=== PATIENT | female | born 1995 | race Caucasian/White ===

== ENCOUNTER 2019-04-09 13:27 | Emergency (ER) | payer OTHER, SELFPAY ==
--- NOTE | 2019-04-09 13:27 | ED.GENADULT ---
HPI - General Adult General Chief complaint: Upper Respiratory Infection Stated complaint: cough/sore throat/ear pain/sob Time Seen by Provider: 04/09/19 13:43 Source: patient Mode of arrival: ambulatory Limitations: no limitations History of Present Illness HPI narrative: 23-year-old female patient presents to the [facility] with complaints of cold symptoms. Patient states she has had the symptoms for the past 4 days that include headache, nasal congestion, runny nose, cough and a sore throat. Patient states that her mother is currently in the hospital with influenza and pneumonia. Patient states that she did get a flu shot this year. Patient states that she does smoke weed occasionally but denies any cigarettes or vaping. Patient states she has been taking [id number] Aleve as well as generic DayQuil for her symptoms. Related Data Allergies Allergy/AdvReac Type Severity Reaction Status Date / Time coconut Allergy Mild rash Verified 03/22/19 13:33 latex Allergy Mild Rash Verified 03/22/19 13:33 quetiapine Allergy Unknown Muscle Verified 03/22/19 13:33 Spasms ziprasidone Allergy Unknown Anaphylactic Verified 03/22/19 13:33 Shock jalpanenos Allergy Mild Rash Uncoded 12/21/18 14:29 jergens lotion Allergy Mild rash Uncoded 12/21/18 14:29 SEASONAL ALLERGENS Allergy Mild Sneezing Uncoded 03/22/19 13:33 CATS Allergy Unknown Sneezing Uncoded 03/22/19 13:33 white chocolate AdvReac Mild Rash Uncoded 12/21/18 14:29 Review of Systems Review of Systems: Narrative: CONSTITUTIONAL: Positive fever, chills, body aches and sweats. EYES: Denies visual changes, redness, or discharge. ENT: Positive rhinorrhea, congestion, sore throat, denies otalgia. CARDIOVASCULAR: Denies chest pain, palpitations, or edema. RESPIRATORY: Positive cough, denies dyspnea. GASTROINTESTINAL: Denies abdominal pain, nausea, vomiting, or diarrhea. GENITOURINARY: Denies dysuria or hematuria. SKIN: Denies rash or itching. MUSCULOSKELETAL: Denies back pain, joint pain, or myalgia. NEUROLOGIC: Positive headache, denies numbness, or weakness. PSYCHIATRIC: Denies anxiety or depression. [facility] Past Medical History Medical History Arthritis Cardiac arrhythmia Endometriosis Fibromyalgia Family History Family History Grandparent Family history of elevated blood lipids Cerebrovascular accident Family history of coronary artery disease, Onset Age: 200 Mother Family history of lupus erythematosus Other Family history of blood dyscrasia Social History Social History Smoking status: Never smoker Second hand tobacco smoke exposure: No Alcohol intake: current Gender identity (if verbalized by the patient): Female Comments At the time of my signature I agree with nursing past medical history, surgical, social, and family history. There is no relevant family history pertinent to the presenting complaint. Exam Narrative: Exam Narrative: GENERAL: ill-appearing, well-nourished, and in no acute distress. HEAD: Normocephalic, atraumatic. EYES: PERRLA and EOMI. ENT: Nares with erythema and edema noted bilaterally, no rhinorrhea or epistaxis. Mucous membranes moist. Posterior pharynx with some erythema but no tonsil enlargement no exudates or lesions present. Bilateral TMs are clear with no erythema or foreign bodies in the canal. NECK: Supple. No lymphadenopathy CHEST: Clear to auscultation. No respiratory distress. Patient able talk in clear complete sentences. No tripoding noted. HEART: Regular rate and rhythm. No murmur heard. Normal peripheral pulses. ABDOMEN: Soft, nontender, nondistended, normal active bowel sounds. EXTREMITIES: Normal range of motion. No edema. SKIN: Warm, dry, no rash. NEURO: No focal deficits. Alert and oriented x3. Course Reevaluation(s) Reevalua
[2019-04-09 13:35] VITALS: BP 126/83; PULSE 88; RESP 20; TEMP 36.4; O2SAT 99
== END 2019-04-09 14:26 | disposition home or self-care (01) ==
PROVIDERS: Emergency Provider Nurse Practitioner Family
DX: J10.1 Influenza due to other identified influenza virus with other respiratory manifestations (principal); M19.90 Unspecified osteoarthritis, unspecified site; N80.9 Endometriosis, unspecified; M79.7 Fibromyalgia
CPT/HCPCS: 87081; 87804; 87880; 99213; G0463

== ENCOUNTER 2019-04-11 14:50 | Emergency (ER) | payer OTHER, SELFPAY ==
--- NOTE | ~2019-04-11 | XR_ITS ---
EXAMINATION: XR chest 2V 04/11/2019 15:23 INDICATION: Cough, congestion and fever PROCEDURE: 2 view chest COMPARISON: 11/23/2007 FINDINGS: The lungs are clear. The cardiomediastinal silhouette is within normal limits. There are no pleural effusions. There is no pneumothorax suspected. IMPRESSION: 1: NO ACUTE CARDIOPULMONARY DISEASE. Reviewed, dictated and finalized at location A. ENGINE MECHANIC
[2019-04-11 14:55] VITALS: BP 136/86; PULSE 92; RESP 20; TEMP 36.3; O2SAT 100
--- NOTE | 2019-04-11 15:51 | ECG_ITS ---
Measurements Intervals [place] Rate: 75 P: 29 [place]: 161 QRS: 23 QRSD: 94 T: 37 QT: 366 QTc: 410 Interpretive Statements SINUS RHYTHM NORMAL ECG Electronically Signed On 04-11-2019 16:20:36 [employer] by Omar Castanon D.O.
[2019-04-11 16:05] VITALS: PULSE 89; RESP 16
[2019-04-11] MEDS: ALBUTEROL SULFATE NEB 2.5 MG/0.5 ML INH 5 MG INHALATION (16:05)
--- NOTE | 2019-04-11 16:05 | ED.GENADULT ---
HPI - General Adult General Chief complaint: Unspecified Stated complaint: FLU LIKE S/S Time Seen by Provider: 04/11/19 15:14 Source: patient Mode of arrival: EMS Limitations: no limitations History of Present Illness HPI narrative: This is a 23 year old female that presents to the ER via EMS for cold symptoms x 3 days. Reports fever, cough, congestion, headache and myalgias. Reports she was seen at the urgent care for this and diagnosed with Influenza. Reports she has been feeling short of breath since onset of symptoms. Also reports some substernal chest tightness that has been present for the last couple days. Denies abdominal pain, nausea or vomiting. Related Data Allergies Allergy/AdvReac Type Severity Reaction Status Date / Time coconut Allergy Mild rash Verified 04/11/19 15:12 latex Allergy Mild Rash Verified 04/11/19 15:12 quetiapine Allergy Unknown Muscle Verified 04/11/19 15:12 Spasms ziprasidone Allergy Unknown Anaphylactic Verified 04/11/19 15:12 Shock jalpanenos Allergy Mild Rash Uncoded 12/21/18 14:29 jergens lotion Allergy Mild rash Uncoded 12/21/18 14:29 SEASONAL ALLERGENS Allergy Mild Sneezing Uncoded 03/22/19 13:33 CATS Allergy Unknown Sneezing Uncoded 03/22/19 13:33 white chocolate AdvReac Mild Rash Uncoded 12/21/18 14:29 Review of Systems Review of Systems: Narrative: CONSTITUTIONAL: Reports fever, chills ENT: Reports rhinorrhea, congestion, sore throat. Denies otalgia. CARDIOVASCULAR: Reports chest pain RESPIRATORY: Reports cough and dyspnea. GASTROINTESTINAL: Denies abdominal pain, nausea, vomiting GENITOURINARY: Denies dysuria MUSCULOSKELETAL: Reports myalgia. All systems reviewed & are unremarkable except as noted in HPI and below PMFSH Past Medical History Medical History (Updated 04/11/19 @ 17:16 by Karly Maki PA-C) Arthritis Cardiac arrhythmia Endometriosis Fibromyalgia Surgical History Surgical History (Updated 04/11/19 @ 16:09 by Karly Maki PA-C) History of dilatation and curettage Social History Social History Smoking status: Never smoker Second hand tobacco smoke exposure: No Alcohol intake: current Gender identity (if verbalized by the patient): Female Exam Narrative: Exam Narrative: GENERAL: Well-appearing, obese, and in no acute distress. HEAD: Normocephalic, atraumatic. EYES: EOMI. ENT: Turbinates swollen and pale. Mucous membranes moist. Oropharynx without tonsillar hypertrophy exudate or other lesions. Bilateral TMs pearly cheng non-bulging NECK: Supple. No adenopathy or masses. CHEST: Clear to auscultation. No respiratory distress. No wheezes rales or rhonchi HEART: Regular rate and rhythm. No murmur heard. Normal peripheral pulses. EXTREMITIES: Normal range of motion. No edema. SKIN: Warm, dry, no rash. NEURO: No focal deficits. Alert and oriented x3. PSYCH: Normal mood and affect Course Vital Signs Vital signs: Vital Signs Temperature 97.3 F L 04/11/19 14:55 Pulse Rate 92 04/11/19 14:55 Respiratory Rate 20 04/11/19 14:55 Blood Pressure 136/86 04/11/19 14:55 Pulse Oximetry 100 04/11/19 14:55 Temperature 97.3 F L 04/11/19 14:55 Pulse Rate 90 04/11/19 16:19 Respiratory Rate 16 04/11/19 16:19 Blood Pressure 136/86 04/11/19 14:55 Pulse Oximetry 100 04/11/19 14:55 Medical Decision Making [facility] Narrative Medical decision making narrative: Patient presents the emergency department for cold symptoms x3 days. Also reports some intermittent chest pain and shortness of breath since onset of cold symptoms. Patient was given a nebulizer treatment with relief. CBC and metabolic panel are without acute changes. Troponin is not elevated. EKG is without acute changes. Chest x-ray is without acute changes. Patient is influenza B positive. She is outside treatment window, so was instructed on symptomatic care. Reports she does have an albuterol inhaler at
[2019-04-11] MEDS: IPRATROPIUM BR 0.02% INH SOLN 0.5 MG/2.5 ML VIAL INHALATION (16:06)
[2019-04-11 16:19] VITALS: PULSE 90; RESP 16
[2019-04-11 16:29] LABS: Basophils Percent Auto 0.3 % (0.2-1.2); Eosinophils Absolute Auto 0.1 K/mm3 (0-0.3); Eosinophils Percent Auto 0.9 % (0-4.4); Hematocrit 41.2 % (37.0-47.0); Immature Granulocyte Absolute 0.01 K/mm3 (0.00-0.031); Immature Granulocyte Percent A 0.2 % (0-0.5); Lymphocytes Absolute Auto 1.88 K/mm3 (0.9-3.2); Lymphocytes Percent Auto 28.9 % (18.3-44.2); Mean Corpuscular Hemoglobin 27.8 pg (26-34); Mean Corpuscular Volume 81.7 fl (80-100); Mean Platelet Volume 9.2 fl (7.4-10.4); Monocytes Absolute Auto 0.6 K/mm3 (0.1-0.6); Monocytes Percent Auto 8.9 % (2.6-8.5); Neutrophils Percent Auto 60.8 % (45.5-73.1); Platelet Count Result 268 k/mm3 (150-375); Red Blood Count 5.04 M/mm3 (4.2-5.4); Red Cell Distribution Width 12.9 % (11.5-14.5); White Blood Count 6.5 K/mm3 (4.5-10.0)
[2019-04-11 16:40] LABS: Blood Urea Nitrogen 8 mg/dL (7-17); Calcium 8.8 mg/dL (8.4-10.2); Carbon Dioxide 24 mmol/L (22-30); Chloride 105 mmol/L (98-107); Estimated CRCL calculation 176 ml/min; Estimated Glomerular Filt Rate > 60; Glucose 100 mg/dL (65-105); Potassium 3.8 mmol/L (3.4-5.0); Sodium 141 mmol/L (137-145)
[2019-04-11 16:52] LABS: Troponin I < 0.012 ng/mL (0.000-0.034)
== END 2019-04-11 17:41 | disposition home or self-care (01) ==
PROVIDERS: Physician Assistant; Emergency Provider Emergency Medicine
DX: J10.1 Influenza due to other identified influenza virus with other respiratory manifestations (principal); M19.90 Unspecified osteoarthritis, unspecified site; M79.7 Fibromyalgia; N80.9 Endometriosis, unspecified
CPT/HCPCS: 36415; 71046; 80048; 84484; 85025; 87804; 93005; 94640; 99284

== ENCOUNTER 2019-12-09 00:57 | Outpatient (CLI) | payer OTHER, SELFPAY ==
[2019-12-09 18:01] LABS: SARS-CoV-2 RNA PCR Negative
== END 2019-12-09 00:58 | disposition home or self-care (01) ==
LOC: ANHCOVIDDT 00:58
PROVIDERS: PCP Family Medicine; Visit Provider Obstetrics & Gynecology
DX: Z01.812 Encounter for preprocedural laboratory examination (principal); Z20.828 Contact with and (suspected) exposure to other viral communicable diseases
CPT/HCPCS: 87635; C9803; U0003

== ENCOUNTER 2019-12-11 00:45 | Day surgery (SDC) | payer OTHER, SELFPAY ==
[2019-11-26 12:09] VITALS: BMI 48.2
[2019-12-11] VITALS (8 sets, daily range): BP systolic 130–161; BP diastolic 74–90; PULSE 78–98; RESP 16–28; TEMP 35.9–36.2; O2SAT 91–100
[2019-12-11] MEDS: LACTATED RINGERS 1,000 ML 30 ML IV CONT ×2 (09:04→13:14)
--- NOTE | 2019-12-11 09:04 | WPDANESEPPF ---
Anes - Initial Pre Proc Eval Procedure: Operation Date: 12/11/19 10:00 Proposed Procedures p Diagnostic Laparoscopy - Frantz Eduardo MD Date/Time: 12/11/19 09:04 Surgeon: Frantz Eduardo MD Pre Op Diagnosis: pelvic and perineal pain Patient Data Age: 24 Gender: F Height: 5 ft 5 in Weight: 131.54 kg Allergies Allergy/AdvReac Type Severity Reaction Status Date / Time coconut Allergy Mild rash, lips Verified 11/26/19 12:11 swelling latex Allergy Mild Rash Verified 11/26/19 12:11 quetiapine Allergy Unknown Muscle Verified 11/26/19 12:11 Spasms ziprasidone Allergy Unknown Anaphylactic Verified 11/26/19 12:11 Shock almond Allergy rash, lips Verified 11/26/19 12:11 swelling acetaminophen [From Tylenol] AdvReac AVOIDS D/T Verified 11/26/19 12:22 FATTY LIVER morphine AdvReac paranoia, Verified 11/26/19 12:11 anxiety jalpanenos Allergy Mild Rash Uncoded 11/26/19 12:11 jergens lotion Allergy Mild rash Uncoded 11/26/19 12:11 SEASONAL ALLERGENS Allergy Mild Sneezing Uncoded 11/26/19 12:11 CATS Allergy Unknown Sneezing Uncoded 11/26/19 12:11 white chocolate AdvReac Mild Rash Uncoded 11/26/19 12:11 Home Medications Medication Instructions Recorded Confirmed Type cetirizine [Zyrtec] 10 mg PO DAILY #30 tablet 04/09/19 11/26/19 Rx diphenhydramine HCl [Benadryl] 25 mg PO BID PRN 11/26/19 11/26/19 History fluoxetine 20 mg PO DAILY 11/26/19 11/26/19 History prazosin 2 mg PO HS 11/26/19 11/26/19 History topiramate 100 mg PO HS 11/26/19 11/26/19 History Patient hx anesthesia problems: none Family hx anesthesia problems: none PMFSH Past Medical History Medical History (Updated 12/11/19 @ 08:56 by Hesham Lai MD) Arthritis Bipolar 1 disorder Cardiac arrhythmia Endometriosis Fatty liver Fibromyalgia Surgical History Surgical History (Updated 04/11/19 @ 16:09 by Karly Maki PA-C) History of dilatation and curettage Social History Social History Smoking status: Never smoker Second hand tobacco smoke exposure: No Alcohol intake: former Alcohol use details: STATES WAS BEGINNING TO HAVE PROBLEMS WITH ALCOHOL- NOW SOBER 6 MONTHS Substance use: current Substance use type: marijuana Last use: 2 WEEKS AGO Gender identity (if verbalized by the patient): Female Spiritual care concerns: No Anes - Eval Final PreProcedure Day of Procedure 12/11/19 09:04 Patient weight: morbidly obese Heart: regular rate and rhythm Lungs: clear to auscultation Airway: Mallampati scale class III Neurological: alert and oriented Last oral intake: >/= 8 hours ASA classification: III Emergent: no Anesthetic plan: proceed Anesthesia type and monitoring: general ETT and standard monitoring Informed Consent: The patient's anesthetic plan and its attendant risks and benefits were discussed with the patient/family/POA. Questions were solicited and answers provided to the satisfaction of the patient/family/POA.
[2019-12-11] MEDS: KETOROLAC 15 MG/ML VIAL (*BKC) IV PUSH (09:05)
[2019-12-11] MEDS: MIDAZOLAM HCL (*CRX) 2 MG/2 ML VIAL IV PUSH (09:05)
[2019-12-11] MEDS: ACETAMINOPHEN 500 MG TABLET 1000 MG PO (09:05)
--- NOTE | 2019-12-11 10:07 | WPDHPUPDATE1 ---
History and Physical Update Update Date/Time: 12/11/19 10:07 History and Physical has been reviewed, including an updated exam of the patient. There are NO changes in the patient's condition. Risks, benefits, and alternatives have been discussed and questions answered. Patient agrees to proceed with procedure.
[2019-12-11] MEDS: fentaNYL CITRATE INJ (*CRX) 100 MCG/2 ML VIAL 25 MCG IV PUSH ×2 (13:24→13:45)
--- NOTE | 2019-12-11 13:27 | P.OP_ITS ---
Procedure Note - Detailed Date of procedure: 12/11/19 Pre-op diagnosis: pelvic and perineal pain Post-op diagnosis: same ( Endometriosis, pelvic adhesions,) Procedure performed: radical resection of endometriosis and peritoneum from the pelvis, adhesiolysis, fulguration of endometriosis Description of procedure: The patient was taken the operating room. She was prepped and draped in the dorsal lithotomy position after induction of general anesthesia. A 5 mm left upper quadrant incision was made in the abdominal skin with a scalpel. A 5 mm trocar was inserted the intra-abdominal cavity under direct visualization of the scope. A 5 mm left lower quadrant incision was made with the scalp on the abdominal skin and a 5 mm trocar was inserted the intra- abdominal cavity under direct visualization of the scope. A 5 mm infraumbilical incision was made with scalpel and a 5 mm trocar was inserted into the intra- abdominal cavity under direct visualization of the scope.The tip of the JOHNATHAN manipulator was inserted into the intrauterine cavity. This was done using a speculum and tenaculum. The balloon was inflated in the speculum and tenaculum were removed. radical resection of peritoneal peritoneum was performed. Was done using sharp and blunt dissection and cautery. The ureters were identified and dissected out from the pelvic brim to the uterine arteries. The surrounding peritoneum from the lateral rectum to the ovarian fossa Laterally, from the pelvic brim to the level of the cervix anteriorly. adhesiolysis was performed deep in the posterior cul-de-sac from the anterior rectum to the anterior pelvis. This required 2 hours. Interceed was placed over posterior cul-de-sac. Areas endometriosis were fulgurated the dome of the bladder Also. The pelvis was irrigated with copious amounts of normal saline. The pneumoperitoneum was reduced. The trocars were removed. The patient was taken recovery room stable condition. Sponge lap and needle counts were correct x2. Anesthesia: GETA Surgeon: Frantz Eduardo MD Estimated blood loss (mL): 100 Drains: No Packing: No Complications: No immediate complications Condition: stable Disposition: PACU Findings: endometrial implants throughout the posterior cul-de-sac of the pelvis. endometriosis implants in the dome of the bladder, adhesions between the anterior rectum the anterior pelvis.
[2019-12-11] MEDS: oxyCODONE HCL (*CRX) 5 MG TAB IR PO (14:41)
== END 2019-12-11 15:25 | disposition home or self-care (01) ==
PROVIDERS: PCP Family Medicine; Visit Provider Obstetrics & Gynecology
PROC: (CPT 49320; principal; 2019-12-11 10:00)
DX: N80.3 Endometriosis of pelvic peritoneum (principal); N73.6 Female pelvic peritoneal adhesions (postinfective); K66.8 Other specified disorders of peritoneum; R10.2 Pelvic and perineal pain; F31.9 Bipolar disorder, unspecified; I49.9 Cardiac arrhythmia, unspecified; M79.7 Fibromyalgia; E66.01 Morbid (severe) obesity due to excess calories; Z68.43 Body mass index [BMI] 50.0-59.9, adult
CPT/HCPCS: 58662; 88305; A9270; J0330; J1100; J1885; J2250; J2405; J2704; J2710; J3010; J7030; J7120

== ENCOUNTER → 2020-05-02 06:21 | Outpatient (CLI) | payer OTHER, SELFPAY ==
[2020-05-02 22:49] LABS: SARS-CoV-2 RNA PCR Negative
== END ==
PROVIDERS: PCP Family Medicine; Visit Provider Obstetrics & Gynecology
DX: Z01.812 Encounter for preprocedural laboratory examination (principal); Z20.822 Contact with and (suspected) exposure to COVID-19
CPT/HCPCS: C9803; U0003; U0005

== ENCOUNTER 2020-05-06 00:38 | Day surgery (SDC) | payer OTHER, SELFPAY ==
[2020-04-29 14:29] VITALS: BMI 47.5
[2020-05-06] VITALS (9 sets, daily range): BP systolic 120–164; BP diastolic 63–117; PULSE 67–100; RESP 14–24; TEMP 36.2; O2SAT 94–100
[2020-05-06] MEDS: LACTATED RINGERS 1,000 ML 30 ML IV CONT ×2 (06:37→08:21)
[2020-05-06] MEDS: KETOROLAC 15 MG/ML VIAL (*BKC) IV PUSH (06:39)
--- NOTE | 2020-05-06 07:09 | WPDANESEPPF ---
Anes - Initial Pre Proc Eval Procedure: Operation Date: 05/06/20 07:30 Proposed Procedures p Hysteroscopy With Endometrial Leigh Ablation - Frantz Eduardo MD s Laparoscopic Bilateral Tubal Sterilization With Fulguration - Frantz Eduardo MD Date/Time: 05/06/20 07:09 Surgeon: Frantz Eduardo MD Pre Op Diagnosis: Menorrhagia, Desires Sterilization Patient Data Age: 25 Gender: F Height: 5 ft 5 in Weight: 135.4 kg Last Vital Signs Temp 97.2 F L 05/06/20 06:11 Pulse 86 05/06/20 06:11 Resp 14 05/06/20 06:11 BP 120/63 05/06/20 06:11 Pulse Ox 100 05/06/20 06:11 Allergies Allergy/AdvReac Type Severity Reaction Status Date / Time coconut Allergy Mild rash, lips Verified 05/06/20 06:29 swelling latex Allergy Mild Rash Verified 05/06/20 06:29 quetiapine Allergy Unknown Muscle Verified 05/06/20 06:29 Spasms ziprasidone Allergy Unknown Anaphylactic Verified 05/06/20 06:29 Shock almond Allergy rash, lips Verified 05/06/20 06:29 swelling acetaminophen [From Tylenol] AdvReac AVOIDS D/T Verified 05/06/20 06:29 FATTY LIVER morphine AdvReac paranoia, Verified 05/06/20 06:29 anxiety jalpanenos Allergy Mild Rash Uncoded 05/06/20 06:29 jergens lotion Allergy Mild rash Uncoded 05/06/20 06:29 SEASONAL ALLERGENS Allergy Mild Sneezing Uncoded 05/06/20 06:29 CATS Allergy Unknown Sneezing Uncoded 05/06/20 06:29 white chocolate AdvReac Mild Rash Uncoded 05/06/20 06:29 Home Medications Medication Instructions Recorded Confirmed Type diphenhydramine HCl [Benadryl] 25 mg PO BID PRN 11/26/19 05/06/20 History fluoxetine 20 mg PO DAILY 11/26/19 05/06/20 History prazosin 2 mg PO HS 11/26/19 05/06/20 History topiramate 100 mg PO HS 11/26/19 05/06/20 History hydrocodone-acetaminophen 1 - 2 tablet PO Q4H PRN #25 tablet 12/11/19 05/06/20 Rx bupropion HCl 150 mg PO DAILY 04/29/20 05/06/20 History fluticasone propionate [Flonase] 1 spray INTRANASAL DAILY 04/29/20 05/06/20 History Patient hx anesthesia problems: other (has been combative after anesthesia; approach with caution) Family hx anesthesia problems: none PMFSH Past Medical History Medical History (Updated 12/11/19 @ 08:56 by Hesham Lai MD) Arthritis Bipolar 1 disorder Cardiac arrhythmia Endometriosis Fatty liver Fibromyalgia Surgical History Surgical History (Updated 04/11/19 @ 16:09 by Karly Maki PA-C) History of dilatation and curettage Family History Family History Grandparent Family history of elevated blood lipids Cerebrovascular accident Family history of coronary artery disease, Onset Age: 200 Mother Family history of lupus erythematosus Other Family history of blood dyscrasia Social History Social History Smoking status: Never smoker Second hand tobacco smoke exposure: No Alcohol intake: former Substance use: current Substance use type: marijuana Last use: 2 WEEKS AGO Living arrangements: with family Gender identity (if verbalized by the patient): Female Spiritual care concerns: No Anes - Eval Final PreProcedure Day of Procedure 05/06/20 07:09 Patient weight: super morbidly obese Heart: regular rate and rhythm Lungs: clear to auscultation Airway: Mallampati scale class III (have glidescope in the room) Neurological: alert and oriented Last oral intake: >/= 8 hours ASA classification: IV Emergent: no Anesthetic plan: proceed Anesthesia type and monitoring: general ETT and standard monitoring Informed Consent: The patient's anesthetic plan and its attendant risks and benefits were discussed with the patient/family/POA. Questions were solicited and answers provided to the satisfaction of the patient/family/POA.
--- NOTE | 2020-05-06 07:12 | WPDHPUPDATE1 ---
History and Physical Update Update Date/Time: 05/06/20 07:12 History and Physical has been reviewed, including an updated exam of the patient. There are NO changes in the patient's condition. Risks, benefits, and alternatives have been discussed and questions answered. Patient agrees to proceed with procedure.
--- NOTE | 2020-05-06 08:33 | P.OP_ITS ---
Procedure Note - Detailed Date of procedure: 05/06/20 Pre-op diagnosis: Menorrhagia, Desires Sterilization Post-op diagnosis: same Procedure performed: Laparoscopic bilateral tubal ligation, Endometrial Ablation Description of procedure: Patient was taken the operating room. She has prepped draped in the dorsal lithotomy position after induction of general anesthesia. A 5 mm abdominal incision was made in left upper quadrant of the abdomen with scalpel. A 5 mm trocars inserted the intra-abdominal cavity under direct visualization of the scope. This trocar was not completely in the abdomen. A 2nd incision was made more medial to the 1st incision. Using a longer trocar the device was placed in the intrauterine cavity under direct visualization the scope. Pneumoperitoneum was achieved. A 5 mm periumbilical incision was made using a scalpel on the abdominal scan. A 5 mm trocar was inserted the intra- abdominal cavity under visualization of the scope. The fallopian tube was grasped with the bipolar cautery in the ampullary region. It was completely desiccated in a 1.5 cm area of the fallopian tube. This was performed in identical fashion on the contralateral side. The instruments were withdrawn. The pneumoperitoneum was reduced. The trocars were removed. The skin was closed with subcuticular 4 Monocryl. This incisions were covered with Dermabond. Our attention was then turned to the endometrial ablation portion of the procedure. A speculum was placed in the vagina. The cervix was grasped with a tenaculum. The cervix was dilated to approximately 8 mm with Dwyer dilators. The hysteroscope was inserted. And the below findings were noted. Measurements of the cervix were taken using the uterine sound and the hysteroscope. The intrauterine cavity measurements were entered into the hand piece of the device. The device was inserted the intrauterine cavity. The array was expanded. The balloon cuff was inflated. The uterus was airtight. The energy and safety cycles within initiated. They were completed under 3 minutes. The balloon cuff was collapsed, the array was collapsed, and the device was removed the uterine cavity. the hysteroscope was reinserted and the cavity was well desiccated, it was clearly observed. Hysteroscope was withdrawn. The tenaculum was removed. The speculum was removed. The patient tolerated the procedure well. She was taken to recover room in stable condition. Anesthesia: GETA Surgeon: Frantz Eduardo MD Estimated blood loss (mL): 10 Drains: No Packing: No Pathology: none sent Complications: No immediate complications Condition: stable Disposition: PACU Findings: Normal female pelvic anatomy. Hemoperitoneum
[2020-05-06] MEDS: fentaNYL CITRATE INJ (*CRX) 100 MCG/2 ML VIAL 25 MCG IV PUSH ×2 (08:54→08:57)
--- NOTE | 2020-05-06 09:48 | SUR.PHASEII ---
0948- Verified with Dr. Eduardo prescription for Hydrocone-Acetaminophen for patient to take at home for pain relief. Per patient she has been cleared to take Corbett at home by her other MD she sees and Dr. Eduardo aware.
[2020-05-06] MEDS: oxyCODONE HCL (*CRX) 5 MG TAB IR PO (09:52)
== END 2020-05-06 10:20 | disposition home or self-care (01) ==
PROVIDERS: PCP Family Medicine; Visit Provider Obstetrics & Gynecology
PROC: 0U5B8ZZ Destruction of Endometrium, Via Natural or Artificial Opening Endoscopic (ICD-10-PCS; CPT 58563; principal; 2020-05-06 07:30)
PROC: (CPT 58671; 2020-05-06 07:30)
DX: N92.0 Excessive and frequent menstruation with regular cycle (principal); Z30.2 Encounter for sterilization; M79.7 Fibromyalgia; K76.0 Fatty (change of) liver, not elsewhere classified; F31.9 Bipolar disorder, unspecified; F12.90 Cannabis use, unspecified, uncomplicated; E66.01 Morbid (severe) obesity due to excess calories; Z68.42 Body mass index [BMI] 45.0-49.9, adult
CPT/HCPCS: 58563; 58670; A9270; J0330; J1100; J1170; J1200; J1885; J2250; J2405; J2704; J3010; J7030; J7120

== ENCOUNTER 2020-05-07 21:07 | Emergency (ER) | payer OTHER, SELFPAY ==
[2020-05-07] VITALS (13 sets, daily range): BP systolic 107–132; BP diastolic 73–80; PULSE 71–91; RESP 15–28; TEMP 36.8; O2SAT 97–98
--- NOTE | ~2020-05-07 | CT_ITS ---
EXAMINATION: CT abdomen pelvis w con DATE: 05/07/2020 22:56 INDICATION: Generalized abdominal pain. TECHNIQUE: Computed tomography (CT) of the abdomen and pelvis was performed with 100 mL Omnipaque 350 intravenous contrast. Automated exposure control and iterative reconstruction technique were employe d. The dose-length product was 1638.16 mGy-cm. COMPARISON: None. FINDINGS: The visualized portions of the lung bases are clear without pneumonia or pleural effusion. The heart size is normal. No pericardial effusion. There is an 8 mm cyst in the liver. There are yoon ges of cholecystectomy. The spleen, pancreas, adrenal glands, and kidneys are normal. There are no di lated loops of bowel. The appendix is normal. There are no pathologically enlarged lymph nodes. There is a small volume of ascites. There is free intraperitoneal gas, consistent with recent surgery. The re is mild thoracolumbar spondylosis. IMPRESSION: 1. Small volume of ascites. Reviewed, dictated and finalized at location A. CIATE DIRECTOR QA IMPRESSION: 1. Small volume of ascites.
[2020-05-07] MEDS: KETOROLAC 30 MG/ML VIAL (*BKC) IV PUSH (21:46)
[2020-05-07] MEDS: ONDANSETRON INJ 4 MG/2 ML VIAL IV PUSH (21:46)
[2020-05-07 21:58] LABS: Basophils Absolute Auto 0.1 K/mm3 (0.0-0.1); Basophils Percent Auto 0.5 % (0.2-1.2); Eosinophils Absolute Auto 0.2 K/mm3 (0-0.3); Eosinophils Percent Auto 1.8 % (0-4.4); Hematocrit 39.2 % (37.0-47.0); Immature Granulocyte Absolute 0.05 K/mm3 (0.00-0.031); Immature Granulocyte Percent A 0.4 % (0-0.5); Lymphocytes Absolute Auto 4.88 K/mm3 (0.9-3.2); Lymphocytes Percent Auto 36.8 % (18.3-44.2); Mean Corpuscular HGB Conc 33.2 g/dl (32-36); Mean Corpuscular Hemoglobin 29.2 pg (26-34); Mean Corpuscular Volume 88.1 fl (80-100); Mean Platelet Volume 9.5 fl (7.4-10.4); Monocytes Absolute Auto 1.1 K/mm3 (0.1-0.6); Neutrophils Percent Auto 52.5 % (45.5-73.1); Platelet Count Result 324 k/mm3 (150-375); Red Blood Count 4.45 M/mm3 (4.2-5.4); Red Cell Distribution Width 12.9 % (11.5-14.5); White Blood Count 13.3 K/mm3 (4.5-10.0)
[2020-05-07 22:08] LABS: Alanine Aminotransferase 159 U/L (4-35); Albumin Level 3.5 g/dL (3.5-5.1); Alkaline Phosphatase 72 U/L (38-126); Anion Gap 2 mmol/L (8-16); Aspartate Amino Transferase 64 U/L (14-36); Bilirubin,Total 0.2 mg/dL (0.2-1.3); Blood Urea Nitrogen 16 mg/dL (7-17); Calcium 8.3 mg/dL (8.4-10.2); Carbon Dioxide 30 mmol/L (22-30); Chloride 108 mmol/L (98-107); Estimated CRCL calculation 164 ml/min; Estimated Glomerular Filt Rate > 60; Glucose 91 mg/dL (65-105); Lipase 103 U/L (23-300); Potassium 3.9 mmol/L (3.4-5.0); Sodium 140 mmol/L (137-145)
[2020-05-07 22:09] LABS: Platelet Estimate Adequate (Adequate)
[2020-05-07 22:10] LABS: Atypical Lymphocytes Present
[2020-05-07 22:11] LABS: Smudge Cells FEW
--- NOTE | 2020-05-07 22:11 | ED.ABDPAIN ---
HPI - Abdominal Pain General Chief Complaint: Abdominal Pain Stated Complaint: Surgery yesterday/ pain and pressure in ABD Time Seen by Provider: 05/07/20 21:12 Source: patient Mode of arrival: ambulatory Limitations: no limitations History of Present Illness HPI narrative: This is a 25 year old female with history of endometriosis, bipolar, fibromyalgia who presents for evaluation diffuse abdominal pain. Yesterday , she had a tubal ligation and endometrial ablation performed by Dr. Eduardo. She states her discharge instructions told her to come to hospital if she had pain that is not relieved by her norco. She reports diffuse abdominal pressure. This pain has been presents since her procedure but is has gotten worsen. She has associated nausea but denies vomiting. She reports she is passing flatus but she denies having a bowel movement. She states she had a low grade fever 99.9 F at home. She has not called her surgeon to get instructions. Related Data Home Medications Medication Instructions Recorded Confirmed diphenhydramine HCl [Benadryl] 25 mg PO BID PRN 11/26/19 05/06/20 fluoxetine 20 mg PO DAILY 11/26/19 05/06/20 prazosin 2 mg PO HS 11/26/19 05/06/20 topiramate 100 mg PO HS 11/26/19 05/06/20 bupropion HCl 150 mg PO DAILY 04/29/20 05/06/20 fluticasone propionate 1 spray INTRANASAL DAILY 04/29/20 05/06/20 Allergies Allergy/AdvReac Type Severity Reaction Status Date / Time coconut Allergy Mild rash, lips Verified 05/06/20 06:29 swelling latex Allergy Mild Rash Verified 05/06/20 06:29 quetiapine Allergy Unknown Muscle Verified 05/06/20 06:29 Spasms ziprasidone Allergy Unknown Anaphylactic Verified 05/06/20 06:29 Shock almond Allergy rash, lips Verified 05/06/20 06:29 swelling acetaminophen [From Tylenol] AdvReac AVOIDS D/T Verified 05/06/20 06:29 FATTY LIVER morphine AdvReac paranoia, Verified 05/06/20 06:29 anxiety jalpanenos Allergy Mild Rash Uncoded 05/06/20 06:29 jergens lotion Allergy Mild rash Uncoded 05/06/20 06:29 SEASONAL ALLERGENS Allergy Mild Sneezing Uncoded 05/06/20 06:29 CATS Allergy Unknown Sneezing Uncoded 05/06/20 06:29 white chocolate AdvReac Mild Rash Uncoded 05/06/20 06:29 Review of Systems Review of Systems: All systems reviewed & are unremarkable except as noted in HPI and below PMFSH Past Medical History Medical History (Updated 05/07/20 @ 23:35 by Camille Muhammad MD) Arthritis Bipolar 1 disorder Cardiac arrhythmia Endometriosis Fatty liver Fibromyalgia Surgical History Surgical History (Updated 04/11/19 @ 16:09 by Karly Maki PA-C) History of dilatation and curettage Family History Family History Grandparent Family history of elevated blood lipids Cerebrovascular accident Family history of coronary artery disease, Onset Age: 200 Mother Family history of lupus erythematosus Other Family history of blood dyscrasia Social History Social History Smoking status: Never smoker Second hand tobacco smoke exposure: No Alcohol intake: former Substance use: current Substance use type: marijuana Last use: 2 WEEKS AGO Gender identity (if verbalized by the patient): Female Spiritual care concerns: No Exam Const: General: alert Orientation/consciousness: patient oriented x3 Eyes: EOM: EOMs intact bilaterally Chest: Chest palpation & inspection: normal inspection of the chest Resp: Effort & Inspection: normal respiratory effort and no retractions Auscultation: clear to auscultation bilaterally Cardio: Rate: regular rate Rhythm: regular rhythm GI: GI Palp: No Soft to palpation and Yes Tenderness to palpation present (GI) Auscultation: normal bowel sounds Skin: General skin exam: normal color Rashes: no rashes Other: incisions intact Neuro: General: patient oriented x3 and moves
[2020-05-07 22:40] LABS: Add Urine Microscopic? YES; Appearance Urine Cloudy (Clear); Bacteria Urine Trace /hpf; Bilirubin Urine 1+ (Negative); Color Urine Amber (Yellow); Glucose Urine UA Negative (Negative); Ketones Urine Trace mg/dL (Negative); Leukocyte Esterase Ur 1+ LEU/UL (Negative); Mucus Urine Heavy /lpf; Nitrate Urine Negative (Negative); Protein Urine 2+ mg/dL (Negative); Squamous Epithelial Cell Urine Many /hpf (Few); WBC Urine 31-50 /hpf
[2020-05-07 22:44] LABS: Blood Urine Negative (Negative)
[2020-05-08] VITALS: BP 111/71; PULSE 71; RESP 19; O2SAT 99
== END 2020-05-08 00:20 | disposition home or self-care (01) ==
PROVIDERS: Emergency Provider General Practice; PCP Family Medicine
DX: F31.9 Bipolar disorder, unspecified (principal); M79.7 Fibromyalgia; N80.9 Endometriosis, unspecified; M19.90 Unspecified osteoarthritis, unspecified site; N39.0 Urinary tract infection, site not specified; R18.8 Other ascites
CPT/HCPCS: 36415; 74177; 80053; 81001; 81025; 83690; 85025; 87077; 87086; 87088; 87186; 96365; 96375; 99284; J0696; J1885; J2405; Q9967

== ENCOUNTER 2021-03-09 02:14 | Emergency (ER) | payer OTHER, SELFPAY ==
[2021-03-09 03:03] VITALS: BP 161/98; PULSE 94; RESP 18; TEMP 36.2; O2SAT 100
--- NOTE | 2021-03-09 04:17 | PC.NURSE ---
Pt stated she was leaving and ambulated out of ED c steady, even, unassisted gait. seen exiting ED and awaiting ride outside.
== END 2021-03-09 04:51 | disposition left against medical advice (07) ==
LOC: ANHED 04:27
PROVIDERS: PCP Family Medicine
DX: Z53.21 Procedure and treatment not carried out due to patient leaving prior to being seen by health care provider (principal)
CPT/HCPCS: 99199